=== PATIENT | female | born 1960 | race Caucasian/White ===

== ENCOUNTER 2021-06-20 12:47 | Emergency (ER) | payer BC ==
[2021-06-20 13:39] VITALS: BP 160/75; PULSE 66
--- NOTE | 2021-06-20 16:25 | CR ---
Right hip: AP and frog leg lateral views of the right hip were obtained. Comparison: No prior pelvis or hip study is available. Joint space within the right hip is maintained. Right sacroiliac joint appears within normal limits. No fracture or other abnormality is appreciated. Impression: 1. Nothing acute is seen on 2-view right hip exam. Diagnostic code #1
--- NOTE | 2021-06-20 16:25 | CR ---
Right femur: AP and lateral views of the right femur were obtained. No fracture or other abnormality is appreciated. Proximal portions of the femur presumably were included on hip exam. Impression: 1. No abnormality is seen on 2-view right femur study. Diagnostic code #1
--- NOTE | 2021-06-20 17:41 | EDM.PDOC ---
ED HPI GENERAL MEDICAL PROBLEM - General Chief Complaint: Lower Extremity Injury/Pain Stated Complaint: LEG INJURY/PAIN Time Seen by Provider: 06/20/21 17:32 Source of Information: Reports: Patient, RN Notes Reviewed History Limitations: Reports: No Limitations - History of Present Illness INITIAL COMMENTS - FREE TEXT/NARRATIVE: Patient is a 60-year-old female presenting to the emergency department with complaints of pain to her right posterior thigh immediately distal to her buttocks. Reports that she fell at work earlier today and likely twisted the area. Reports she has had previous hamstring injury on this leg which just recently healed. She experiences significant discomfort if she bears weight on the leg, however she can lift the leg but straightening it worsens her pain. Denies any numbness or tingling of the extremity. Denies any pain in her back. Left Upper Leg Pain Score (Numeric/FACES): 8 - Related Data Allergies Allergy/AdvReac Type Severity Reaction Status Date / Time No Known Allergies Allergy Verified 06/20/21 13:39 Home Meds: Home Meds Orphenadrine [Norflex] 100 mg PO BID PRN #16 tab 06/20/21 [Rx] Terbinafine [LamISIL] 250 mg PO DAILY 06/20/21 [History] Timolol Maleate 1 drop EYEBOTH DAILY 06/20/21 [History] Past Medical History HEENT History: Reports: Hard of Hearing Respiratory History: Reports: Sleep Apnea Other Respiratory History: uses CPAP Genitourinary History: Reports: Renal Calculus Other Neuro History: fainted - Past Surgical History GI Surgical History: Reports: Appendectomy Social & Family History - Tobacco Use Tobacco Use Status *Q: Never Tobacco User - Caffeine Use Caffeine Use: Reports: None - Recreational Drug Use Recreational Drug Use: No Review of Systems - Review of Systems Review Of Systems: Comprehensive ROS is negative, except as noted in HPI. ED EXAM, GENERAL - Physical Exam Exam: See Below General Appearance: Alert, WD/WN, No Apparent Distress Respiratory/Chest: No Respiratory Distress, Lungs Clear, Normal Breath Sounds, No Accessory Muscle Use, Chest Non-Tender Cardiovascular: Normal Peripheral Pulses, Regular Rate, Rhythm, No Edema, No Gallop, No JVD, No Murmur, No Rub Extremities: Other (Tenderness to palpation of the right posterior thigh overlying the right buttocks and immediately distal to the buttocks. She is able to lift her leg without difficulty but lifting and straining causes significant pain.) Neurological: Alert, Oriented, CN II-XII Intact, Normal Cognition, Normal Reflexes, No Motor/Sensory Deficits Psychiatric: Normal Affect, Normal Mood Skin Exam: Warm, Dry, Intact, Normal Color, No Rash Course - Vital Signs Last Recorded V/S: Last Vital Signs Temp 97.1 F 06/20/21 13:35 Pulse 66 06/20/21 13:35 Resp 16 06/20/21 13:35 BP 160/75 H 06/20/21 13:35 Pulse Ox 97 06/20/21 13:35 - Re-Assessments/Exams Free Text/Narrative Re-Assessment/Exam: Patient is a 60-year-old female presenting to the ER with complaints of pain to her right posterior upper thigh. Reports she fell earlier in the day. X-rays were completed of her femur and hip on triage and show no acute abnormalities. On exam, she has diffuse tenderness to the proximal hamstring. She is able to lift the leg, however straightening it causes additional discomfort. Patient has been provided Demar wrap which she will apply when she gets home and removes her pants. She states she has crutches at home. I will give her Flexeril and recommend Tylenol and ibuprofen. Advised that if she is not having significant improvement in her pain by early next week, she should follow-up in the clinic and discuss possibility of physical therapy. She verbalized understanding of this. Discharge instructions as documented. Departure - Departure Time of Disposition: 17:44 Disposition: Home, Self-Care 01 Condition: Good Clinical Impression: Hamstring injury Qualifiers: Encounter type: initial encounter Laterality: right Qualified Code(s): S76.301A - Unspecified injury of muscle, fascia and tendon of the posterior muscle group at thigh level, right thigh, initial encounter - Discharge Information *PRESCRIPTION DRUG MONITORING PROGRAM REVIEWED*: No *COPY OF PRESCRIPTION DRUG MONITORING REPORT IN PATIENT LILLI: No Prescriptions: Orphenadrine [Norflex] 100 mg PO BID PRN #16 tab PRN Reason: Muscle Spasm - Painful Instructions: Muscle Strain, [id number] Referrals: Margie Acuna MD [Primary Care Provider] - Forms: ED Department Discharge, ED Return to Work/School Form Additional Instructions: Wrap the right thigh snugly with Demar wrap. Use crutches for mobility. Ice over the area of discomfort for half hour every 3 hours for the first 2 days. Do not apply ice directly to the skin. Then apply intermittent heat to the area. Use the orphenadrine as prescribed for muscle spasms. Use [id number] Tylenol and ibuprofen as needed for discomfort. If you are not having improvement in your symptoms by next week, recommend follow-up in the clinic. Return to ER as needed. Sepsis Event Note (ED) - Evaluation Sepsis Screening Result: No Definite Risk
== END 2021-06-20 18:15 | disposition home or self-care (01) ==
LOC: JD.ED 12:47
DX: S76.301A Unspecified injury of muscle, fascia and tendon of the posterior muscle group at thigh level, right thigh, initial encounter (principal); W18.39XA Other fall on same level, initial encounter; Y99.0 Civilian activity done for income or pay
CPT/HCPCS: 73502-26-RT; 73502-RT; 73552-26-RT; 73552-RT; 99283-25